=== PATIENT | female | born 1990 | race Caucasian/White ===

== ENCOUNTER → 2016-08-22 | Outpatient (CLI) | payer OTHER ==
[2016-08-22 10:16] LABS: MEAN CORPUSCULAR HEMOGLOBIN 31.7 pg (27.0-33.0); MEAN CORPUSCULAR HGB CONC 34.2 g/dl (32.0-36.5); MEAN CORPUSCULAR VOLUME 92.8 fl (80.0-96.0); WHITE BLOOD COUNT 5.4 K/mm3 (4.0-10.0)
[2016-08-22 10:42] LABS: ALBUMIN/GLOBULIN RATIO 1.14 (1.00-1.93); ALKALINE PHOSPHATASE 65 U/L (45-117); ALT/SGPT 19 U/L (12-78); ANION GAP 6 MEQ/L (8-16); AST/SGOT 16 U/L (15-37); BILIRUBIN,TOTAL 0.5 MG/DL (0.2-1.0); BLOOD UREA NITROGEN 12 MG/DL (7-18); CALCIUM LEVEL 8.8 MG/DL (8.5-10.1); CARBON DIOXIDE LEVEL 28 MEQ/L (21-32); CHLORIDE LEVEL 105 MEQ/L (98-107); CREATININE FOR GFR 0.79 MG/DL (0.55-1.02); GLOMERULAR FILTRATION RATE > 60.0 (>60); GLUCOSE, FASTING 82 MG/DL (70-105); HCG, SERUM QUANTITATIVE < 1.0 MIU/ML; POTASSIUM SERUM 4.7 MEQ/L (3.5-5.1); SODIUM LEVEL 139 MEQ/L (136-145); TOTAL PROTEIN 7.5 GM/DL (6.4-8.2)
[2016-08-24 10:20] LABS: PROGESTERONE 0.3 NG/ML; PROLACTIN 2.3 NG/ML
[2016-08-24 10:21] LABS: ESTRADIOL 32.8 PG/ML; FOLLICLE STIMULATING HORMONE 5.7 mIU/mL; LUTEINIZING HORMONE 11.1 mIU/mL
[2016-08-27 00:08] LABS: ANTI MULLERIAN HORMONE 12.6 ng/mL (.)
== END ==
LOC: M LAB 09:05
PROVIDERS: ATTEND Obstetrics & Gynecology Reproductive Endocrinology
DX: N97.9 Female infertility, unspecified (principal)

== ENCOUNTER → 2016-11-02 | Outpatient (CLI) | payer OTHER ==
--- NOTE | 2016-11-02 08:31 | REP ---
ENDOVAGINAL PROBE PELVIC ULTRASOUND: 11/02/2016. Clinical history: Infertility. No prior study. Findings: Endovaginal probe shows the uterus anteverted measuring 6.9 x 2.8 x 4.4 cm. The central endometrial echogenic stripe has a thickness of 4.5 mm. It is homogeneous, thin. There is no fluid in endometrial cavity under the cervical canal. The right ovary is 3.7 x 1.2 x 1.8 cm and the left ovary is 3.1 x 1.3 x 3 cm. On the right ovary there are 22 separate follicles in the 2.2 - 6.9 mm range. In the left ovary there were 29 follicles measuring 2.6 - 8.7 mm. No follicles of a centimeter size nor evidence of solid mass nor pelvic free fluid. Impression: 1. Endometrial stripe, uterus and ovaries as described. No pelvic free fluid. No adnexal mass. Signed by Brent Mai MD 11/02/2016 09:11 P
[2016-11-02 09:26] LABS: HCG, SERUM QUANTITATIVE < 1.0 MIU/ML
[2016-11-02 10:05] LABS: ESTRADIOL 26.4 PG/ML; PROGESTERONE 0.4 NG/ML
[2016-11-02 10:06] LABS: FOLLICLE STIMULATING HORMONE 6.2 mIU/mL
== END ==
LOC: M RAD 07:26
PROVIDERS: ATTEND Obstetrics & Gynecology Reproductive Endocrinology
DX: E28.9 Ovarian dysfunction, unspecified (principal)

== ENCOUNTER → 2017-09-13 | Outpatient (CLI) | payer OTHER ==
[2017-09-13 08:38] LABS: PROGESTERONE 0.2 NG/ML
[2017-09-13 08:38] LABS: LUTEINIZING HORMONE 5.8 mIU/mL
[2017-09-13 08:39] LABS: ESTRADIOL 147.2 PG/ML
== END ==
LOC: M RAD 06:22
DX: E28.9 Ovarian dysfunction, unspecified (principal)
CPT/HCPCS: 76830

== ENCOUNTER → 2017-09-22 | Outpatient (CLI) | payer OTHER ==
[2017-09-22 09:44] LABS: ESTRADIOL 206.9 PG/ML
== END ==
LOC: M LAB 06:21
DX: E28.9 Ovarian dysfunction, unspecified (principal)

== ENCOUNTER → 2017-09-29 | Outpatient (CLI) | payer OTHER ==
[2017-09-29 07:56] LABS: HCG, SERUM QUANTITATIVE 3 MIU/ML
[2017-09-29 08:33] LABS: PROGESTERONE 12.3 NG/ML
== END ==
LOC: M LAB 06:59
DX: Z32.00 Encounter for pregnancy test, result unknown (principal)
CPT/HCPCS: 84702

== ENCOUNTER 2017-12-09 18:06 | Emergency (ER) | payer OTHER ==
[2017-12-09] MEDS: NS 1,000 ML IV (20:15)
[2017-12-09] MEDS: KETOROLAC 30 MG/ML VIAL (J1885) IV (20:16)
[2017-12-09] MEDS: METOCLOPRAMIDE INJ 10MG/2ML VIAL (J2765) IV (20:16)
[2017-12-09 20:19] LABS: BASO # 0.1 10^3/uL (0.0-0.2); BASO % 0.4 % (0.0-1.0); EOS % 0.2 % (0.0-3.0); HEMATOCRIT 42.7 % (36.0-47.0); HEMOGLOBIN 14.5 g/dl (12.0-15.5); IMMATURE GRANULOCYTE % 1.8 % (0-3.0); LYMPH # 2.6 10^3/uL (1.5-6.5); LYMPH % 17.9 % (24.0-44.0); MEAN CORPUSCULAR HEMOGLOBIN 32.3 pg (27.0-33.0); MEAN CORPUSCULAR VOLUME 95.1 fl (80.0-96.0); MONO # 0.8 10^3/uL (0.0-0.8); MONO % 5.8 % (0.0-5.0); NEUTROPHILS # 10.7 10^3/uL (1.8-7.7); NEUTROPHILS % 73.9 % (36.0-66.0); PLATELET COUNT, AUTOMATED 181 10^3/uL (150-450); RED BLOOD COUNT 4.49 10^6/uL (4.00-5.40); WHITE BLOOD COUNT 14.5 10^3/uL (4.0-10.0)
[2017-12-09 20:44] LABS: LACTIC ACID SEPSIS PROTOCOL 1.3 MMOL/L (0.4-2.0)
[2017-12-09 20:46] LABS: ALBUMIN 3.1 GM/DL (3.2-5.2); ALBUMIN/GLOBULIN RATIO 0.89 (1.00-1.93); ALKALINE PHOSPHATASE 47 U/L (45-117); ALT/SGPT 22 U/L (12-78); ANION GAP 10 MEQ/L (8-16); AST/SGOT 16 U/L (7-37); BILIRUBIN,TOTAL 0.3 MG/DL (0.2-1.0); BLOOD UREA NITROGEN 10 MG/DL (7-18); CALCIUM LEVEL 8.5 MG/DL (8.5-10.1); CARBON DIOXIDE LEVEL 25 MEQ/L (21-32); CHLORIDE LEVEL 106 MEQ/L (98-107); CREATININE FOR GFR 0.75 MG/DL (0.55-1.30); GLOMERULAR FILTRATION RATE > 60.0 (>60); GLUCOSE, FASTING 86 MG/DL (70-100); HCG, SERUM QUANTITATIVE < 1.0 MIU/ML; LIPASE 133 U/L (73-393); POTASSIUM SERUM 3.5 MEQ/L (3.5-5.1); SODIUM LEVEL 141 MEQ/L (136-145); TOTAL PROTEIN 6.6 GM/DL (6.4-8.2)
[2017-12-09] MEDS: MORPHINE 2 MG/ML 1ML SYRINGE (J2270) IV (21:00)
[2017-12-09] MEDS: NS 500 ML IV (21:22)
[2017-12-09] MEDS ORDERED: ISOVUE-370 76% 100ML VIAL (Q9967) As Ordered (21:23)
[2017-12-09 22:24] LABS: KETONE, URINE AUTO RFX 1+ mg/dL (NEGATIVE); MUCUS, URINE RFX SMALL (NEGATIVE); NITRITE, URINE AUTO RFX NEGATIVE (NEGATIVE); RBC, URINE AUTO RFX 2 /HPF (0-3); SPECIFIC GRAVITY UR AUTO RFX 1.034 (1.002-1.035); SQUAM EPITHELIAL CELL UR AURFX 2 /HPF (0-6); WBC, URINE AUTO RFX 1 /HPF (0-3)
[2017-12-09 22:26] LABS: LEUKOCYTE ESTERASE UR AUTO RFX TRACE (NEGATIVE)
[2017-12-09] MEDS: ONDANSETRON 4 MG ORAL DISINTEGRATING TAB (Q0162 PER 1MG) PO (23:30)
== END 2017-12-09 23:55 | disposition home or self-care (01) ==
LOC: M ED 18:06
DX: G89.18 Other acute postprocedural pain (principal); R10.9 Unspecified abdominal pain; R11.2 Nausea with vomiting, unspecified
CPT/HCPCS: Q9967

== ENCOUNTER → 2018-05-13 | Outpatient (CLI) | payer OTHER ==
[~2018-05-13] MED LIST: CABE0.5T; PERC5TAB12 PO; ZOFR4TAB14 PO
[2018-05-13 07:27] LABS: THYROID STIMULATING HORMONE 3.5 uIU/ML (0.358-3.740)
[2018-05-13 15:20] LABS: ESTRADIOL 134.6 PG/ML; PROGESTERONE 28.2 NG/ML
== END ==
LOC: M LAB 06:16
PROVIDERS: ATTEND Obstetrics & Gynecology Reproductive Endocrinology
DX: E28.9 Ovarian dysfunction, unspecified (principal)

== ENCOUNTER → 2018-05-19 | Outpatient (CLI) | payer OTHER ==
[2018-05-19 12:33] LABS: PROGESTERONE 64.08 NG/ML
== END ==
LOC: M LAB 06:35
PROVIDERS: ATTEND Obstetrics & Gynecology Reproductive Endocrinology
DX: E28.9 Ovarian dysfunction, unspecified (principal)

== ENCOUNTER → 2018-05-23 | Outpatient (CLI) | payer OTHER ==
[2018-05-23 08:48] LABS: ESTRADIOL 107.2 PG/ML; PROGESTERONE 58.87 NG/ML; THYROID STIMULATING HORMONE 2.22 uIU/ML (0.358-3.740)
== END ==
LOC: M LAB 06:41
PROVIDERS: ATTEND Obstetrics & Gynecology Reproductive Endocrinology
DX: Z32.01 Encounter for pregnancy test, result positive (principal)

== ENCOUNTER → 2018-06-01 | Outpatient (CLI) | payer OTHER ==
--- NOTE | 2018-06-01 19:45 | REPVR ---
EXAM: US First Trimester, Transabdominal and US , Transvaginal EXAM DATE/TIME: 06/01/2018 6:34 PM CLINICAL HISTORY: 27 years old, female; Signs and symptoms; Lmp or gestational age (in weeks): Unknown; Other: Vaginal bleeding, dating/viability; ; Additional info: Dating and viability TECHNIQUE: Real-time transabdominal obstetrical ultrasound of the maternal pelvis and a first trimester , less than 14 weeks 0 days, with image documentation. Transvaginal imaging was used for better evaluation of the fetus and adnexa. COMPARISON: Transvaginal NON- US 09/13/2017 6:34 AM FINDINGS: MATERNAL: Uterus: Transabdominally, the uterus measures 9.5 x 4.4 by 5.5 cm. The endometrial stripe measures 1 cm in thickness and is heterogeneous in appearance. Endovaginally, the endometrial stripe measures 1.2 cm in thickness. No areas of abnormal vascularity noted within the endometrial color Doppler examination. The endometrial stripe is heterogeneous in appearance. There is no intrauterine gestational sac Cervix: Unremarkable. Right adnexa: Transabdominally, the right ovary is not seen as a separate structure. Endovaginally, the right ovary measures 2 x 3.6 x 1.4 cm. Blood flow seen in the right ovary on color Doppler and pulsed Doppler examination. Left adnexa: Transabdominally, the left ovary is not seen as a separate structure. Endovaginally, the left ovary measures 2.4 x 4 x 1.1 cm. Blood flow seen in the left ovary on color Doppler and pulsed Doppler examination. Intraperitoneal: No intraperitoneal free fluid. IMPRESSION: 1. No evidence of intrauterine gestational sac. In the presence of a positive beta hCG, an empty uterus suggest the possibilities of recent miscarriage, normal early intrauterine or ectopic . Serial beta hCG measurement and followup ultrasound might be considered 2. Endometrial stripe is heterogeneous in appearance. This could reflect blood products/debris. Electronically signed by: Cira Tai On 06/01/2018 19:45:12 PM
[2018-06-01 20:34] LABS: ESTRADIOL 48.2 PG/ML; PROGESTERONE 7.69 NG/ML
== END ==
LOC: M RAD 18:15
PROVIDERS: ATTEND Obstetrics & Gynecology Reproductive Endocrinology
DX: E28.9 Ovarian dysfunction, unspecified (principal)

== ENCOUNTER → 2018-09-26 | Outpatient (CLI) | payer OTHER ==
[2018-09-26 07:27] LABS: BASO % 0.7 % (0.0-1.0); EOS # 0.1 10^3/uL (0.0-0.50); EOS % 2.2 % (0.0-3.0); HEMATOCRIT 40.6 % (36.0-47.0); HEMOGLOBIN 14.1 g/dl (12.0-15.5); LYMPH # 2.3 10^3/uL (1.5-6.5); LYMPH % 39.7 % (24.0-44.0); MEAN CORPUSCULAR HEMOGLOBIN 31.8 pg (27.0-33.0); MEAN CORPUSCULAR HGB CONC 34.7 g/dl (32.0-36.5); MEAN CORPUSCULAR VOLUME 91.6 fl (80.0-96.0); MONO # 0.6 10^3/uL (0.0-0.8); MONO % 10.5 % (0.0-5.0); NEUTROPHILS # 2.7 10^3/uL (1.8-7.7); NEUTROPHILS % 46.6 % (36.0-66.0); PLATELET COUNT, AUTOMATED 195 10^3/uL (150-450); RED BLOOD COUNT 4.43 10^6/uL (4.00-5.40); WHITE BLOOD COUNT 5.8 10^3/uL (4.0-10.0)
[2018-09-26 07:56] LABS: ALBUMIN 3.8 GM/DL (3.2-5.2); ALT/SGPT 19 U/L (12-78); BILIRUBIN,TOTAL 0.5 MG/DL (0.2-1.0); BLOOD UREA NITROGEN 18 MG/DL (7-18); CALCIUM LEVEL 9.3 MG/DL (8.5-10.1); CARBON DIOXIDE LEVEL 27 MEQ/L (21-32); CHLORIDE LEVEL 108 MEQ/L (98-107); CREATININE FOR GFR 0.83 MG/DL (0.55-1.30); GLOMERULAR FILTRATION RATE > 60.0 (>60); GLUCOSE, FASTING 86 MG/DL (70-100); POTASSIUM SERUM 4.1 MEQ/L (3.5-5.1); SODIUM LEVEL 141 MEQ/L (136-145); TOTAL PROTEIN 7.2 GM/DL (6.4-8.2)
[2018-09-28 00:08] LABS: Lyme Disease IgG/IgM Antibodie <0.91 ISR (0.00-0.90); Lyme Disease IgM Ab Quantitati <0.80 index (0.00-0.79)
== END ==
LOC: M LAB 06:50
PROVIDERS: ATTEND Physician Assistant
DX: S00.06XA Insect bite (nonvenomous) of scalp, initial encounter (principal); X58.XXXA Exposure to other specified factors, initial encounter; Y92.89 Other specified places as the place of occurrence of the external cause; R53.83 Other fatigue

== ENCOUNTER → 2018-10-24 | Outpatient (REF) | payer OTHER ==
[2018-10-24 16:41] LABS: HCG, SERUM QUANTITATIVE < 1.0 MIU/ML
[2018-10-24 16:44] LABS: LUTEINIZING HORMONE 4.9 mIU/mL; PROGESTERONE 0.22 NG/ML
[2018-10-24 16:45] LABS: ESTRADIOL 27.9 PG/ML
== END ==
LOC: M LABDRAW1 12:40
PROVIDERS: ATTEND Obstetrics & Gynecology Reproductive Endocrinology
DX: E28.9 Ovarian dysfunction, unspecified (principal)

== ENCOUNTER → 2018-10-31 | Outpatient (REF) | payer OTHER ==
[2018-10-31 11:53] LABS: PROGESTERONE 0.21 NG/ML
== END ==
LOC: M LABDRAW1 11:03
PROVIDERS: ATTEND Obstetrics & Gynecology Reproductive Endocrinology
DX: E28.9 Ovarian dysfunction, unspecified (principal)

== ENCOUNTER → 2018-11-04 | Outpatient (REF) | payer OTHER ==
[2018-11-04 13:22] LABS: ESTRADIOL 227.2 PG/ML; LUTEINIZING HORMONE 10.8 mIU/mL; PROGESTERONE 0.21 NG/ML
== END ==
LOC: M LABDRAW1 10:57
PROVIDERS: ATTEND Obstetrics & Gynecology Reproductive Endocrinology
DX: E28.9 Ovarian dysfunction, unspecified (principal)

== ENCOUNTER → 2018-11-21 | Outpatient (CLI) | payer OTHER ==
[2018-11-21 10:57] LABS: PROGESTERONE 42.24 NG/ML
== END ==
LOC: M LAB 08:22
PROVIDERS: ATTEND Obstetrics & Gynecology Reproductive Endocrinology
DX: E28.9 Ovarian dysfunction, unspecified (principal)

== ENCOUNTER → 2018-11-23 | Outpatient (CLI) | payer OTHER ==
[2018-11-23 08:29] LABS: THYROID STIMULATING HORMONE 2.37 uIU/ML (0.358-3.740)
[2018-11-23 08:32] LABS: ESTRADIOL 170.7 PG/ML; PROGESTERONE 59.92 NG/ML
== END ==
LOC: M LAB 07:37
PROVIDERS: ATTEND Obstetrics & Gynecology Reproductive Endocrinology
DX: Z32.01 Encounter for pregnancy test, result positive (principal); Z3A.00 Weeks of gestation of pregnancy not specified

== ENCOUNTER → 2019-06-08 | Outpatient (REF) | payer OTHER ==
[2019-06-08 16:17] LABS: HCG, SERUM QUANTITATIVE < 1.0 MIU/ML
[2019-06-08 16:20] LABS: LUTEINIZING HORMONE 5.7 mIU/mL; PROGESTERONE 0.42 NG/ML
[2019-06-08 16:21] LABS: ESTRADIOL < 19.0 PG/ML; FOLLICLE STIMULATING HORMONE 5.1 mIU/mL
== END ==
LOC: M LABDRAW1 14:25
PROVIDERS: ATTEND Obstetrics & Gynecology Reproductive Endocrinology
DX: E28.9 Ovarian dysfunction, unspecified (principal)

== ENCOUNTER → 2019-06-13 | Outpatient (CLI) | payer OTHER ==
[2019-06-13 10:10] LABS: ESTRADIOL 387.1 PG/ML; LUTEINIZING HORMONE 0.6 mIU/mL; PROGESTERONE 0.21 NG/ML
== END ==
LOC: M LAB 08:03
PROVIDERS: ATTEND Obstetrics & Gynecology Reproductive Endocrinology
DX: E28.9 Ovarian dysfunction, unspecified (principal)

== ENCOUNTER → 2019-06-15 | Outpatient (CLI) | payer OTHER ==
[2019-06-15 18:10] LABS: ESTRADIOL 712.3 PG/ML; LUTEINIZING HORMONE 0.2 mIU/mL; PROGESTERONE 0.23 NG/ML
== END ==
LOC: M RAD 16:45 → M LAB 16:45
PROVIDERS: ATTEND Obstetrics & Gynecology Reproductive Endocrinology
DX: E28.9 Ovarian dysfunction, unspecified (principal)

== ENCOUNTER → 2019-06-23 | Outpatient (CLI) | payer OTHER ==
[2019-06-23 10:05] LABS: ESTRADIOL 41.4 PG/ML; PROGESTERONE 13.79 NG/ML
== END ==
LOC: M WUC 08:37
PROVIDERS: ATTEND Obstetrics & Gynecology Reproductive Endocrinology
DX: E28.9 Ovarian dysfunction, unspecified (principal)

== ENCOUNTER → 2019-07-03 | Outpatient (CLI) | payer OTHER ==
[2019-07-03 11:17] LABS: HCG, SERUM QUANTITATIVE < 1.0 MIU/ML
[2019-07-03 11:20] LABS: PROGESTERONE 0.91 NG/ML
== END ==
LOC: M WUC 09:51
PROVIDERS: ATTEND Obstetrics & Gynecology Reproductive Endocrinology
DX: Z32.00 Encounter for pregnancy test, result unknown (principal)